=== PATIENT | male | born 1955 | race Caucasian/White ===

== ENCOUNTER → 2017-09-01 | Outpatient (CLI) | payer OTHER | LOC: BMCIMAGING 08:42 | PROVIDERS: ATTEND Orthopaedic Surgery Hand Surgery | DX: M25.512 Pain in left shoulder (principal) ==

== ENCOUNTER 2017-10-06 11:47 | Outpatient (CLI) | payer OTHER ==
--- NOTE | 2017-10-06 12:45 | PDANEPAE ---
ANE History of Present Illness Cervical and lumbar spine ANE Past Medical History - Cardiovascular History Hx Hypertension: Yes Hx Arrhythmias: No Hx Chest Pain: Yes Hx Coronary Artery / Peripheral Vascular Disease: Yes Hx CHF / Valvular Disease: No Hx Palpitations: No Cardiovascular History Comment: Myocardial infarction - Pulmonary History Hx COPD: No Hx Asthma/Reactive Airway Disease: Yes Hx Recent Upper Respiratory Infection: No Hx Oxygen in Use at Home: No Pulmonary History Comment: "spot on my Left Lung, but they don't do anything with it" - Neurologic History Hx Cerebrovascular Accident: No Hx Seizures: No Hx Dementia: No Neurologic History Comment: Cluster headaches - Endocrine History Hx Diabetes: Yes Obesity: moderate - Renal History Hx Renal Disorders: No - Liver History Hx Hepatic Disorders: No - Neurological & Psychiatric Hx Hx Neurological and Psychiatric Disorders: No - Cancer History Hx Cancer: No Cancer History Comment: "burned the prostate out" - Congenital Disorder History Hx 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" - GI History GERD: mild Hx Gastrointestinal Disorders: Yes Gastrointestinal History Comment: Ulcerative Collitis, Severe Diverticulitis - Other Health History Other Health History: deviated septum,glaucoma, - Chronic Pain History Chronic Pain: Yes - Surgical History Prior Surgeries: tonsillectomy, Right shoulder rebuilt,bilateral carpal tunnel, Intestinal surgery, thumb on right hand reatached, Prostate surgery, ANE Review of Systems Review of Systems: - Exercise capacity METS (RN): 2 METS ANE Patient History - Allergies Allergies/Adverse Reactions: ibuprofen [Ibuprofen] Allergy (Intermediate, Verified 05/23/15 22:21) bee venom protein (honey bee) Allergy (Verified 10/03/17 16:07) oxycodone HCl [From Percocet] Allergy (Verified 05/23/15 22:21) - Home Medications Home Medications: LORAZEPAM 03/29/10 [Last Taken 03/16/10 09:00] ALBUTEROL SULFATE 10/20/14 [Last Taken Unknown] Amlodipine Bes/Olmesartan Med 10/20/14 [Last Taken Unknown] Carvedilol Cr 10/20/14 [Last Taken Unknown] Lasix 10/20/14 [Last Taken Unknown] metFORMIN HCL [Glucophage 850 mg (*)] 10/20/14 [Last Taken Unknown] DEXILANT 10/03/17 [Last Taken Unknown] Epipen 0.3 MG 10/03/17 [Last Taken Unknown] Jardiance 10/03/17 [Last Taken Unknown] Lasix 10/03/17 [Last Taken Unknown] Losartan Potassium [Cozaar 25 mg (*)] 10/03/17 [Last Taken Unknown] Symbicort 80-4.5 Mcg Inhaler 10/03/17 [Last Taken Unknown] ULORIC 10/03/17 [Last Taken Unknown] Ventolin Hfa Inhaler 10/03/17 [Last Taken Unknown] - NPO status NPO Status: no food or drink >8 hours - Smoking Hx Smoking Status: Never smoked - Family Anes Hx Family Hx Anesthesia Complications: no ANE Labs/Vital Signs - Vital Signs Height: 172.72 cm Weight: 102.965 kg ANE Physical Exam - Airway Neck exam: FROM Mallampati Score: Class 3 Mouth exam: normal dental/mouth exam - Pulmonary Pulmonary: no respiratory distress - Cardiovascular Cardiovascular: regular rate and rhythym - ASA Status ASA Status: III ANE Anesthesia Plan Anesthesia Plan: GA w LMA
[2017-10-06] MEDS ORDERED: fentaNYL 100 MCG/2 ML INJ ONE (13:04)
[2017-10-06] MEDS ORDERED: PROPOFOL/EMULSION 500 MG/50 ML BOTTLE IV ONE (13:05)
[2017-10-06] MEDS ORDERED: MIDAZOLAM 2 MG/2 ML VIAL ONE (13:05)
[2017-10-06] MEDS ORDERED: PROPOFOL 200 MG/20 ML VIAL ONE (13:05)
[2017-10-06] MEDS ORDERED: ONDANSETRON 4 MG/2 ML VIAL IVP PRN (15:15)
[2017-10-06] MEDS ORDERED: NALOXONE HCL 0.4 MG/ML INJ IVP PRN (15:15)
[2017-10-06] MEDS ORDERED: fentaNYL 100 MCG/2 ML INJ IVP PRN (15:15)
--- NOTE | 2017-10-06 15:16 | POSTANESTH ---
Post Anesthetic Evaluation Cardiovascular Status: Normal, Stable Respiratory Status: Normal, Stable Level of Consciousness/Mental Status: Can Participate in Eval Pain Control: Adequate, Prn Tx Ordered Nausea/Vomiting Control: Adequate, Prn Tx Ordered Complications Possibly Related to Anesthesia: None Noted
[2017-10-06 16:42] VITALS: BP 137/80
[2017-10-06] MEDS ORDERED: DEXAMETHASONE 10 MG/ML VIAL ONE (19:05)
[2017-10-06] MEDS ORDERED: GLYCOPYRROLATE 0.2 MG/1 ML VIAL ONE (19:05)
== END 2017-10-06 16:29 | disposition home or self-care (01) ==
LOC: FIMAGING 11:47
DX: M51.36 Other intervertebral disc degeneration, lumbar region (principal); M12.88 Other specific arthropathies, not elsewhere classified, other specified site; M48.061 Spinal stenosis, lumbar region without neurogenic claudication; M99.73 Connective tissue and disc stenosis of intervertebral foramina of lumbar region; M50.30 Other cervical disc degeneration, unspecified cervical region
CPT/HCPCS: J1100; J2250; J2704; J3010

== ENCOUNTER 2017-10-26 11:35 | Outpatient (CLI) | payer OTHER ==
--- NOTE | 2017-10-26 13:14 | PDANEPAE ---
ANE History of Present Illness MRI thoracic spine. patient has claustrophobia and chronic pain ANE Past Medical History - Cardiovascular History Hx Hypertension: Yes Hx Arrhythmias: No Hx Chest Pain: Yes Hx Coronary Artery / Peripheral Vascular Disease: Yes Hx CHF / Valvular Disease: No Hx Palpitations: No Cardiovascular History Comment: Myocardial infarction. Chronic bilateral leg edema - Pulmonary History Hx COPD: No Hx Asthma/Reactive Airway Disease: Yes Hx Recent Upper Respiratory Infection: No Hx Oxygen in Use at Home: No Hx Sleep Apnea: Yes Pulmonary History Comment: "spot on my Left Lung, but they don't do anything with it". Sleep study shows obstructive sleep apnea but unable to use CPAP due to claustrophobia - Neurologic History Hx Cerebrovascular Accident: No Hx Seizures: No Hx Dementia: No Neurologic History Comment: Cluster headaches, panic attacks - Endocrine History Hx Diabetes: Yes Hypothyroid: No Hyperthyroid: No Obesity: moderate Endocrine History Comment: DM since age 4, on Metformin - Renal History Hx Renal Disorders: Yes Renal History Comment: Hx of many kidney stones - Liver History Hx Hepatic Disorders: No - Neurological & Psychiatric Hx Hx Neurological and Psychiatric Disorders: Yes Neurological / Psychiatric History Comment: peripheral neuropathy - Cancer History Hx Cancer: No Cancer History Comment: "burned the prostate out" - Congenital Disorder History Hx 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" - GI History GERD: mild Hx Gastrointestinal Disorders: Yes Gastrointestinal History Comment: Ulcerative Collitis, Severe Diverticulitis. Hiatal hernia - Other Health History Other Health History: deviated septum,glaucoma, - Chronic Pain History Chronic Pain: Yes - Surgical History Prior Surgeries: tonsillectomy, Right shoulder rebuilt,bilateral carpal tunnel, Intestinal surgery, thumb on right hand reatached, Prostate surgery, ANE Review of Systems Review of Systems: - Exercise capacity METS (RN): 2 METS ANE Patient History - Allergies Allergies/Adverse Reactions: ibuprofen [Ibuprofen] Allergy (Intermediate, Verified 10/24/17 16:04) bee venom protein (honey bee) Allergy (Verified 10/24/17 16:04) oxycodone HCl [From Percocet] Allergy (Verified 10/24/17 16:04) - Home Medications Home Medications: LORAZEPAM 03/29/10 [Last Taken 03/16/10 09:00] ALBUTEROL SULFATE 10/20/14 [Last Taken Unknown] Amlodipine Bes/Olmesartan Med 10/20/14 [Last Taken 10/26/17] Carvedilol Cr 10/20/14 [Last Taken 10/26/17] Lasix 10/20/14 [Last Taken 10/26/17] metFORMIN HCL [Glucophage 850 mg (*)] 10/20/14 [Last Taken 10/26/17] DEXILANT 10/03/17 [Last Taken 10/25/17] Epipen 0.3 MG 10/03/17 [Last Taken Unknown] Jardiance 10/03/17 [Last Taken 10/26/17] Lasix 10/03/17 [Last Taken 10/26/17] Losartan Potassium [Cozaar 25 mg (*)] 10/03/17 [Last Taken 10/26/17] Symbicort 80-4.5 Mcg Inhaler 10/03/17 [Last Taken 10/25/17] ULORIC 10/03/17 [Last Taken 10/25/17] Ventolin Hfa Inhaler 10/03/17 [Last Taken 10/25/17] - Smoking Hx Smoking Status: Never smoked Marijuana use: No - Alcohol Use Alcohol Use: Other (1 drink/month) - Family Anes Hx Family Anes Hx: none Family Hx Anesthesia Complications: no ANE Labs/Vital Signs - Vital Signs Blood Pressure: 126/75 Heart Rate: 57 Respiratory Rate: 18 O2 Sat (%): 94 Height: 172.72 cm Weight: 102.965 kg ANE Physical Exam - Airway Neck exam: FROM Mallampati Score: Class 2 Mouth exam: normal dental/mouth exam - Pulmonary Pulmonary: clear to auscultation - Cardiovascular Cardiovascular: regular rate and rhythym - ASA Status ASA Status: III ANE Anesthesia Plan Anesthesia Plan: GA w LMA (LMA proSeal)
[2017-10-26] MEDS ORDERED: PROPOFOL 200 MG/20 ML VIAL ONE ×3 (13:28→16:02)
[2017-10-26] MEDS ORDERED: MIDAZOLAM 2 MG/2 ML VIAL IVP ONE (13:30)
[2017-10-26] MEDS ORDERED: fentaNYL 100 MCG/2 ML INJ ONE (13:46)
[2017-10-26] MEDS ORDERED: SUCCINYLCHOLINE CHLORIDE 200 MG/10 ML VIAL ONE (13:50)
[2017-10-26] MEDS ORDERED: LR 1,000 ML IV SCH (14:00)
[2017-10-26] MEDS ORDERED: NALOXONE HCL 0.4 MG/ML INJ IVP PRN (15:14)
[2017-10-26] MEDS ORDERED: ONDANSETRON 4 MG/2 ML VIAL IVP PRN (15:14)
--- NOTE | 2017-10-26 15:43 | POSTANESTH ---
Post Anesthetic Evaluation Cardiovascular Status: Similar to Pre-Op Cond Respiratory Status: Similar to Pre-op Cond. Level of Consciousness/Mental Status: Can Participate in Eval Pain Control: Adequate, Prn Tx Ordered Nausea/Vomiting Control: Adequate, Prn Tx Ordered Complications Possibly Related to Anesthesia: None Noted
[2017-10-26] MEDS ORDERED: PHENYLEPHRINE 10 MG/ML SDV ONE (16:20)
[2017-10-26] MEDS ORDERED: DEXAMETHASONE 10 MG/ML VIAL ONE (16:20)
[2017-10-26] MEDS ORDERED: RANITIDINE 50 MG/2 ML VIAL ONE (16:20)
[2017-10-26] MEDS ORDERED: ONDANSETRON 4 MG/2 ML VIAL ONE (16:20)
[2017-10-26] MEDS ORDERED: PROMETHAZINE HCL 25 MG/ML INJ ONE (16:20)
[2017-10-26 16:27] VITALS: BP 112/69
== END 2017-10-26 16:48 | disposition home or self-care (01) ==
LOC: FIMAGING 11:35
DX: M48.04 Spinal stenosis, thoracic region (principal); M51.24 Other intervertebral disc displacement, thoracic region; M51.14 Intervertebral disc disorders with radiculopathy, thoracic region; F40.240 Claustrophobia; G89.29 Other chronic pain; G44.009 Cluster headache syndrome, unspecified, not intractable; I25.2 Old myocardial infarction
CPT/HCPCS: J0330; J1100; J2250; J2370; J2405; J2550; J2704; J2780; J3010

== ENCOUNTER → 2018-01-07 | Outpatient (CLI) | payer OTHER | LOC: FIMAGING 10:02 | DX: M16.12 Unilateral primary osteoarthritis, left hip (principal); M25.852 Other specified joint disorders, left hip ==